=== PATIENT | female | born 1950 | race Caucasian/White ===

== ENCOUNTER 2017-07-26 12:09 | Emergency (ER) | payer MEDICARE ==
[~2017-07-26] VITALS: Ht 165.1 cm; Wt 86.2 kg
[2017-07-26 12:11] VITALS: BP 121/74
--- NOTE | 2017-07-26 12:46 | Emergency Room Report ---
History of Present Illness General Chief Complaint: Generalized Weakness Source: Patient Present Illness HPI 66-year-old female brought in by EMS from [facility] for one to 2 months of weakness. Patient states that about every week she has periods of headache, head heaviness , dizziness, and pain to neck and the back and she feels like she is going to fall. Today she had an episode and actually fell however did not sustain any trauma. She currently "feels okay". She has a history of CVA 3 years ago, bypass 2 years ago, diabetes and hypertension. Blood sugar here was 160. She also has history of anemia that required transfusion in the past Allergies: Coded Allergies: No Known Allergies (Unverified , 07/26/17) Patient History Past Medical History: DM, HTN, CVA/TIA Past Surgical History: CABG Pertinent Family History: none Social History: Denies: smoking, alcohol use, drug use Now: No Immunizations: UTD Reviewed Nursing Documentation: PMH: Agreed, PSxH: Agreed Nursing Documentation-PMH Past Medical History: No History, Except For Hx Cardiac Problems: Yes - QUADRUPLE BIPASS 2016 Hx Diabetes: Yes Review of Systems All Other Systems: negative except mentioned in HPI Physical Exam Vital Signs Date Time Temp Pulse Resp B/P (MAP) Pulse Ox O2 Delivery O2 Flow Rate FiO2 07/26/17 11:58 97.4 58 18 121/74 98 Room Air 97.3 Sp02 EP Interpretation: reviewed, normal General Appearance: normal inspection, well appearing, no apparent distress, alert, GCS 15, non-toxic, other - Well-appearing interactive, Head: normocephalic, atraumatic Eyes: bilateral eye PERRL, bilateral eye EOMI, 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 ENT: normal ENT inspection, hearing grossly normal, normal pharynx, no angioedema, normal voice, TMs + canals normal, uvula midline, moist mucus membranes Neck: normal inspection, full range of motion, supple, thyroid normal, no meningismus, no bony tend Respiratory: normal inspection, lungs clear, normal breath sounds, no rhonchi, no respiratory distress, no retraction, no accessory muscle use, no wheezing, speaking full sentences Cardiovascular #1: regular rate, rhythm, no edema, no JVD, normal capillary refill Gastrointestinal: normal inspection, normal bowel sounds, non tender, soft, no mass, no peritonitis, non-distended, no guarding, no hernia, no pulsatile mass Genitourinary: no CVA tenderness Musculoskeletal: normal inspection, back normal, normal range of motion, no calf tenderness, pelvis stable, Carter's Sign negative Neurologic: normal inspection, alert, oriented x3, responsive, fire inspector III-XII nml as tested, motor strength/tone normal, cerebellar normal, normal gait, speech normal Psychiatric: normal inspection, judgement/insight normal, mood/affect normal, no suicidal/homicidal ideation, no delusions Skin: normal inspection, normal color, no rash Lymphatic: normal inspection, no adenopathy Medical Decision Making Diagnostic Impression: Primary Impression: Episode of generalized weakness Additional Impressions: Frequent falls Headache Qualified Codes: G44.219 - Episodic tension-type headache, not intractable Hyperkalemia IZABEL (acute kidney injury) ER Course Vital signs stable, afebrile n0 acute distress No focal neurological deficits on exam Given his history of CABG, diabetes, hypertension, previous stroke and recurrent episodes of weakness, headache and neck pain concern for occlusion of cerebral vasculature or posterior stroke CT head unremarkable for infarct Labs significant for chemistry showing potassium of 6, elevated serum creatinine ECG shows sinus bradycardia to 52 and PACs with inverted T waves in 2, 3, aVF and leads V3 to V6 I discussed this finding with Dr. Neves at [facility]; he agrees with plan to give calcium, albuterol, insulin\\dextrose for hyperkalemia and he will repeat the chemistry for patient upon arrival He also requests that CTA of neck be delayed until patient gets to [facility] for admission/transfer at 2 PM EKG Diagnostic Results Rate: normal ST Segments: other - TWI in 2, 3, AVF, V3-6 Rhythm Strip Diag. Results EP Interpretation: yes Rate: 76 Rhythm: NSR, no PVC's, no ectopy Last Vital Signs Date Time Temp Pulse Resp B/P (MAP) Pulse Ox O2 Delivery O2 Flow Rate FiO2 07/26/17 12:11 97.3 18 121/74 98 Room Air 97.3 07/26/17 11:58 58 Status: improved [facility] Condition: Serious ELENI MUNOZ M.D. Jul 26, 2017 12:46
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
--- NOTE | 2017-07-26 13:38 | Diagnostic Imaging Report ---
Indications: 70 Technique: Spiral acquisitions obtained through the brain. Angled axial and coronal 5 x 5 mm slices were reconstructed. Total dose length product 1390.1 mGycm. CTDI vol(s) 70.38 mGy. Dose reduction achieved using automated exposure control Comparison: None. Findings: No acute intracranial hemorrhage or edema. No mass effect or midline shift. There is age-related enlargement of the ventricles and extra axial CSF spaces. There is a large old left inferior frontal deep white matter lacunar infarct, with resultant ex vacuo dilatation of the frontal horn left lateral ventricle. Numerous other lacunar infarcts are seen in the basal ganglia and deep white matter bilaterally. There is extensive periventricular deep white matter chronic ischemic change. There is generalized mild enlargement of the ventricles and extra axial CSF spaces, consistent with age-related changes. The sinuses are clear. The orbits are unremarkable. Impression: Negative for acute intracranial bleed or mass effect Chronic and age-related changes, as described Multiple old bilateral basal ganglia and deep white matter lacunar infarcts The CT scanner at [facility] is accredited by the [employer] and the scans are performed using protocols designed to limit radiation exposure to as low as reasonably achievable to attain images of sufficient resolution adequate for diagnostic evaluation.
[2017-07-26 13:53] LABS: BASOPHILS % (AUTO) 0.9 % (0.0-2.0); EOSINOPHILS % (AUTO) 1.4 % (0.0-3.0); HEMATOCRIT 33.3 % (37.0-47.0); LYMPHOCYTES % (AUTO) 19.3 % (20.0-45.0); MEAN CORPUSCULAR VOLUME 93 FL (80-99); MONOCYTES % (AUTO) 6.6 % (1.0-10.0); NEUTROPHILS % (AUTO) 71.8 % (45.0-75.0); PLATELET COUNT 155 K/UL (150-450); RED BLOOD COUNT 3.56 M/UL (4.20-5.40); RED CELL DISTRIBUTION WIDTH 12.5 % (11.6-14.8); WHITE BLOOD COUNT 7.5 K/UL (4.8-10.8)
[2017-07-26 14:00] VITALS: BP 145/58
[2017-07-26 14:00] LABS: APPEARANCE,URINE TURBID; BILIRUBIN, URINE 1+ (NEGATIVE); GLUCOSE, URINE (UA) NEGATIVE (NEGATIVE); KETONES,URINE 1+ (NEGATIVE); LEUKOCYTE ESTERASE ,URINE 3+ (NEGATIVE); NITRITE,URINE NEGATIVE (NEGATIVE); PH,URINE 5 (4.5-8.0); PROTEIN,URINE 3+ (NEGATIVE); UROBILINOGEN,URINE NORMAL MG/DL (0.0-1.0)
[2017-07-26] MEDS ORDERED: METFORMIN HCL500 M1 ORAL (14:03)
[2017-07-26] MEDS ORDERED: HIGH BP (14:03)
[2017-07-26 14:05] LABS: COLOR,URINE YELLOW
[2017-07-26 14:16] LABS: ALANINE AMINOTRANSFERASE 14 U/L (12-78); ALBUMIN 3.6 G/DL (3.4-5.0); ALBUMIN/GLOBULIN RATIO 0.9 (1.0-2.7); ALKALINE PHOSPHATASE 95 U/L (46-116); ANION GAP 10 mmol/L (5-15); ASPARTATE AMINO TRANSFERASE 15 U/L (15-37); BILIRUBIN,TOTAL 0.3 MG/DL (0.2-1.0); BLOOD UREA NITROGEN 30 mg/dL (7-18); CALCIUM 9.2 MG/DL (8.5-10.1); CARBON DIOXIDE 20 MMOL/L (21-32); CHLORIDE 109 MMOL/L (98-107); CKMB 0.5 NG/ML (0.0-3.6); CREATINE KINASE 53 U/L (26-308); CREATININE 1.5 MG/DL (0.55-1.30); SODIUM 141 MMOL/L (136-145)
[2017-07-26] MEDS ORDERED: Calcium Gluconate 1gm/10ml vial IVP ONE (14:30)
[2017-07-26] MEDS ORDERED: Albuterol ud Inhalation HHN ONE (14:30)
[2017-07-26 15:30] VITALS: BP 153/66
[2017-07-26 16:20] VITALS: BP 149/39
--- NOTE | 2017-07-30 18:49 | Cardiology Report ---
APPROVED REPORT EKG Measurement Heart [id number] Sinus bradycardia with premature atrial complexes Cannot rule out Anterior infarct, age undetermined T wave abnormality, consider inferolateral ischemia Abnormal ECG
== END 2017-07-26 16:27 | disposition short-term general hospital (02) ==
LOC: EDBD 12:09 → EMR 12:46 → EDBEDREQ 13:02 → EMR 16:27
DX: N17.9 Acute kidney failure, unspecified (principal); E87.5 Hyperkalemia; G44.219 Episodic tension-type headache, not intractable; R53.1 Weakness; R29.6 Repeated falls; E11.9 Type 2 diabetes mellitus without complications; I10 Essential (primary) hypertension; Z86.73 Personal history of transient ischemic attack (TIA), and cerebral infarction without residual deficits; Z95.1 Presence of aortocoronary bypass graft
CPT/HCPCS: 36415; 70450; 71045; 80053; 81003; 82550; 82553; 82962; 84484; 85025; 87086; 87181; 93005; 94640; 94664; 96374; 96375; 99285; J0610; J1815